=== PATIENT | female | born 1955 | race Caucasian/White ===

== ENCOUNTER 2021-09-24 09:07 | Outpatient (CLI) | payer BC ==
[2021-09-24 14:30] LABS: ALT (SGPT) 22 U/L (8-55); AST (SGOT) 27 U/L (5-34); Albumin 4.5 g/dL (3.4-4.8); Alkaline Phosphatase 80 U/L (40-110); Bilirubin, Direct 0.6 mg/dL (0.1-0.3); Bilirubin, Total 1.8 mg/dL (0.2-1.2); Protein, Total 7.2 g/dL (5.8-8.1)
== END 2021-09-24 09:08 | disposition home or self-care (01) ==
LOC: SCSRAD 09:07
PROVIDERS: ATTEND Family Medicine
DX: J18.9 Pneumonia, unspecified organism (principal); R17 Unspecified jaundice
CPT/HCPCS: 36415; 71046; 80076